=== PATIENT | female | born 1950 | race Caucasian/White ===

== ENCOUNTER 2020-05-19 10:47 | Outpatient (CLI) | payer MEDICARE, SELFPAY | END 2020-05-19 10:48 | disposition home or self-care (01) | PROVIDERS: PCP Family Medicine; Visit Provider Otolaryngology | DX: H91.90 Unspecified hearing loss, unspecified ear (principal); H69.80 Other specified disorders of Eustachian tube, unspecified ear | CPT/HCPCS: 92557; 92567 ==

== ENCOUNTER → 2022-10-23 07:51 | Outpatient (CLI) | payer MEDICARE, SELFPAY ==
--- NOTE | ~2022-10-23 | MR_ITS ---
MRI of the right shoulder Technique: Axial proton-density fat-sat images, coronal proton density fat-sat and T2 fat-sat images, and sagittal T1-weighted and T2 fat-sat images were acquired. Clinical History: Pain Findings: There is moderate to advanced AC joint degenerative change. There is bony productive change at the distal clavicle. Coracoclavicular, coracoacromial, and coracohumeral ligaments appear intact. There are complete, full-thickness tears involving the entirety of the supraspinatus and infraspinatu s tendons, which are retracted to the level of the glenohumeral joint. Fluid-filled gap measures appr oximately 3.8 x 3.7 cm in extent. Subscapularis tendon is markedly thickened and hyperintense, with p robable high-grade partial-thickness versus complete tearing distally. Tendon of long head of the bic eps is probably intact. There is superior labral tearing extending to the anterosuperior portion. Inferior glenohumeral ligament is intact. There are small glenohumeral joint effusion with prominent fluid distention of the subcoracoid bursa. No definite muscle atrophy evident. There is mild edematou s change of the infraspinatus muscle belly. No degenerative change of the glenohumeral joint. Humeral head is mildly high riding. Impression: Complete, full-thickness tears involving the entirety of the supraspinatus and infraspinatus tendons, as detailed above. Probable high-grade partial versus full-thickness tearing of the distal subscapularis tendon. Subcoracoid bursitis. Superior labral tear extending to the anterosuperior portion. Advanced AC joint degenerative change. Reviewed, dictated and finalized at [facility]. Impression: Complete, full-thickness tears involving the entirety of the supraspinatus and infraspinatus tendons, as detailed above. Probable high-grade partial versus full-thickness tearing of the distal subscap ularis tendon. Subcoracoid bursitis. Superior labral tear extending to the anterosuperior portion. Advanced AC joint degenerative change.
== END ==
PROVIDERS: PCP Physician Assistant Medical; Visit Provider Physician Assistant Medical
DX: S49.91XA Unspecified injury of right shoulder and upper arm, initial encounter (principal); X58.XXXA Exposure to other specified factors, initial encounter; M75.121 Complete rotator cuff tear or rupture of right shoulder, not specified as traumatic
CPT/HCPCS: 73221

== ENCOUNTER 2024-06-28 11:17 | Outpatient (CLI) | payer MEDICARE, SELFPAY ==
--- NOTE | ~2024-06-28 | MR_ITS ---
MRI of the cervical spine Clinical History: Neck pain Technique: Axial T2-weighted and gradient images, and sagittal T1-weighted, T2-weighted, and STIR jelly ges were acquired. Findings: There is no fracture of the cervical spine. There is minimal grade 1 anterolisthesis of C4 over C5. Vertebral bodies otherwise maintain normal height and alignment. No suspicious bone marrow s ignal abnormality seen. At C2-C3, there is no disc bulge or herniation. There is no spinal canal stenosis, cord compression, or definite neural foraminal narrowing. At C3-C4, there is no disc bulge or herniation. No spinal canal stenosis, cord compression, or neural foraminal narrowing. There is mild facet arthropathy. At C4-C5, there is minimal disc bulge. No spinal canal stenosis, cord compression, or neural foramina l narrowing. At C5-C6, there is mild degenerative distended with minimal disc osteophyte complex. No spinal canal stenosis or cord compression. There is left neural foraminal narrowing with mild left facet arthropat hy. Right neural foramen preserved. At C6-C7, there is no significant disc bulge or herniation. No spinal canal stenosis, cord compressio n, or definite neural foraminal narrowing. No abnormal signal seen in the spinal cord. Paravertebral soft tissues are unremarkable. Impression: Mild degenerative spondylosis, as above. Reviewed, dictated and finalized at [facility]. Impression: Mild degenerative spondylosis, as above.
== END 2024-06-28 11:18 | disposition home or self-care (01) ==
LOC: MICIMG 11:18
PROVIDERS: PCP Physician Assistant Medical; Visit Provider Physician Assistant Medical
DX: M47.892 Other spondylosis, cervical region (principal)
CPT/HCPCS: 72141